=== PATIENT | female | born 1990 | race American Indian/Alaskan Native ===

== ENCOUNTER → 2018-01-24 | Outpatient (CLI) | payer OTHER ==
[~2018-01-24] MED LIST: PRENATAL TABLE1 EAC1 PO
== END | disposition home or self-care (01) ==
LOC: NST 18:24 → OBS/DEL 18:24
DX: O47.1 False labor at or after 37 completed weeks of gestation (principal); Z34.03 Encounter for supervision of normal first pregnancy, third trimester

== ENCOUNTER 2018-02-03 06:47 | Inpatient (IN) | payer OTHER ==
[~2018-02-03] VITALS: Ht 162.6 cm; Wt 60.8 kg
[2018-02-06] MEDS ORDERED: OXYC1TAB9 PO (08:49)
[2018-02-06] MEDS ORDERED: MIRALAX17 GM PO (08:49)
== END 2018-02-06 10:32 | DRG 766 ==
LOC: OB/GYN 06:47 → LDR 06:47 → O/R 14:00 → OB/GYN 16:26
PROVIDERS: Obstetrics & Gynecology
PROC: 4A1HXCZ Monitoring of Products of Conception, Cardiac Rate, External Approach (ICD-10-PCS; 2018-02-03)
PROC: 10D00Z1 Extraction of Products of Conception, Low, Open Approach (ICD-10-PCS; principal; 2018-02-03 16:00)
DX: O62.1 Secondary uterine inertia (principal); Z3A.39 39 weeks gestation of pregnancy; Z37.0 Single live birth